=== PATIENT | male | born 1995 | race Two or more races ===

== ENCOUNTER 2023-05-20 10:28 | Emergency (ER) | payer OTHER, SELFPAY ==
[2023-05-20 10:35] VITALS: BP 128/59; PULSE 77; RESP 20; TEMP 36.6; O2SAT 99
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
== END 2023-05-20 12:28 | disposition home or self-care (01) ==
PROVIDERS: Emergency Provider Emergency Medicine
DX: S79.912A Unspecified injury of left hip, initial encounter (principal); S50.811A Abrasion of right forearm, initial encounter; S40.812A Abrasion of left upper arm, initial encounter; V49.40XA Driver injured in collision with unspecified motor vehicles in traffic accident, initial encounter
CPT/HCPCS: 99282